=== PATIENT | male | born 1965 | race Caucasian/White ===

== ENCOUNTER → 2017-07-10 | Day surgery (SDC) | payer OTHER ==
[~2017-07-10] MED LIST: HYDROCODONE-AP1 EAC6 PO; LIPITOR 20 MG T20 M1 PO; NORVASC5 MG PO; PROTONIX40 M1 PO; XANAX1 MG PO
[2017-07-10 13:46] LABS: HEMATOCRIT 42.5 % (42.0-52.0); HEMOGLOBIN 14.5 gm/dL (14.0-18.0); MCH 31.4 pg (26.0-34.0); MCV 92.3 fL (80.0-100.0); MPV 8.8 fl. (7.2-11.1); RBC 4.6 mil/uL (4.50-6.00); RDW-CV 13.6 % (10.5-14.5); WBC 9.5 thou/uL (4.0-11.0)
[2017-07-10 13:51] LABS: CALCIUM 9.1 mg/dL (8.5-10.1); POTASSIUM 3.8 mmol/L (3.5-5.1)
[2017-07-10 13:56] LABS: ALBUMIN 4.1 g/dL (3.4-5.0); TOTAL BILIRUBIN 0.9 mg/dL (<0.1-1.0); TOTAL PROTEIN 7.4 g/dL (6.4-8.2)
--- NOTE | 2017-07-10 17:51 | EKG ---
[place] [address] ELECTROCARDIOGRAM REPORT Name: JUDYMALIAJESUSROSS Ángel Room: [facility]#: [id number] Admission: 07/10/17 Attend Phys: Jeffry Royal II Discharge: Date of : 63 Report #: [id number] THIS REPORT FOR: //name// 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
--- NOTE | 2017-07-23 10:50 | OP ---
[address] [address] OPERATIVE REPORT Name: JUDYMALIAROSS J Room: [facility]#: [id number] Admission: 07/10/17 Attend Phys: Jeffry Royal II Discharge: Date of : 63 Report #: [id number] THIS REPORT FOR: //name// CC: Hiwot Royal DATE OF SERVICE: 07/10/2017 PREOPERATIVE DIAGNOSIS: Left knee medial meniscus tear. POSTOPERATIVE DIAGNOSES: 1. Left knee medial meniscus tear. 2. Lateral meniscus tear 3. Grade 3 chondromalacia, patellofemoral groove. PROCEDURE PERFORMED: 1. Left knee arthroscopic surgery with partial medial and lateral meniscectomy. 2. Abrasion chondroplasty, patellofemoral groove. SURGEON: Jeffry Royal II, DO ENGINE[employer] DES[employer] CONSTRUCTION: GEN Garcia. ANESTHESIA: Per operative record. ESTIMATED BLOOD LOSS: Minimal. ANTIBIOTICS: Per operative record. DRAINS: None. COMPLICATIONS: None. CONDITION: The patient stable to recovery room. DESCRIPTION OF PROCEDURE: The patient was taken to the operative suite, placed supine on the operating table and given appropriate anesthesia. The patient's affected lower extremity was sterilely prepped and draped in a well-padded knee arthroscopic hays. Surgery began by medial and lateral portal incision. The arthroscope was advanced in the joint. There was found to be a posterior horn medial meniscus tear, was debrided utilizing baskets and shaver back to stable margins. There was also noted to be a posterior and lateral meniscus tear, was debrided back to good stable margin with baskets and shaver. There was grade 3 chondromalacia in the patellofemoral groove, which was debrided utilizing a shaver down to bleeding bone and then utilizing coblation wand was smoothed in appropriate fashion. ACL did have minor fraying, but was intact[place] [address] OPERATIVE REPORT Name: JAMEROSS J Room: [facility]#: [id number] Admission: 07/10/17 Attend Phys: Jeffry Royal II Discharge: Date of : 63 Report #: [id number]. The knee was then drained of arthroscopic fluid, closed with 4-0 nylon in simple fashion. Dermabond and sterile dressings were applied. The patient transferred to recovery room in stable condition. Counts were correct. <ELECTRONICALLY SIGNED> By: Jeffry Royal II, 07/23/17 1050 [id number] [id number] Royal II, DO /nt
== END | disposition home or self-care (01) ==
LOC: M.SUR 08:06
PROVIDERS: Orthopaedic Surgery
DX: M23.222 Derangement of posterior horn of medial meniscus due to old tear or injury, left knee (principal); M23.252 Derangement of posterior horn of lateral meniscus due to old tear or injury, left knee; M22.42 Chondromalacia patellae, left knee